=== PATIENT | male | born 1970 | race Two or more races ===

== ENCOUNTER → 2020-11-17 06:55 | Outpatient (CLI) | payer OTHER ==
[~2020-11-17 06:55] MED LIST: PERCOCET 5-3251 EACH PO
== END | disposition home or self-care (01) ==
LOC: LAB 06:55
PROVIDERS: ATTEND Surgery
DX: K64.2 Third degree hemorrhoids (principal); K62.5 Hemorrhage of anus and rectum; K62.89 Other specified diseases of anus and rectum

== ENCOUNTER 2020-11-19 06:18 | Day surgery (SDC) | payer OTHER ==
[2020-11-19] MEDS ORDERED: PERCOCET 5-3251 EACH PO (09:27)
== END 2020-11-19 15:00 | disposition home or self-care (01) ==
LOC: CIR.AMB 06:18
PROVIDERS: ATTEND Surgery
DX: K64.8 Other hemorrhoids (principal); K64.4 Residual hemorrhoidal skin tags; Z20.822 Contact with and (suspected) exposure to COVID-19